=== PATIENT | female | born 1970 | race Caucasian/White ===

== ENCOUNTER 2019-06-04 11:08 | Emergency (ER) | payer BC, OTHER ==
[2019-06-04] MEDS ORDERED: Aspirin 81 mg CHEW TAB* 81 MG TAB.CHEW PO ONE (11:24)
[2019-06-04] MEDS ORDERED: Nitroglycerin TAB 0.4 MG* 0.4 MG TAB SL ONE (11:25)
--- NOTE | 2019-06-04 11:27 | ED ---
HPI Chest Pain - HPI Summary HPI Summary: 48-year-old female presents with sudden onset of back pain on left side today. She states that she initially thought was a muscle spasm. She states it radiates to the front of her chest and into left shoulder. States she became diaphoretic and a little nauseous. She states the pain hurts worse her takes a deep breath. She also to nauseous but that has resolved. She states that her pain was very sharp. Pain is now dull ache. She's never had this pain before. No injury. Has had diarrhea illness the past week and has been having occasional cough. Does have a strong family cardiac history. Has a history of diabete high blood pressure and high cholesterol. States that she sees a watchguard. Had a recent stress test in August that was normal. Has history of right bundle-branch block. She hasn't taken anything for her symptoms. - History of Current Complaint Chief Complaint: EDBackInjuryPain Time Seen by Provider: 06/04/19 11:12 Pain Intensity: 5 - Allergy/Home Medications Allergies/Adverse Reactions: Allergies Allergy/AdvReac Type Severity Reaction Status Date / Time latex Allergy Severe Shortness Verified 06/04/19 13:14 of Breath Home Medications: Home Medications Albuterol HFA INHALER* [Ventolin HFA Inhaler*] 2 puff INH Q6H PRN 06/04/19 [ History Confirmed 06/04/19] Cyclobenzaprine TAB* [Flexeril 10 MG TAB*] 10 mg PO BEDTIME PRN 06/04/19 [ History Confirmed 06/04/19] Ergocalciferol CAP* [Drisdol CAP*] 50,000 unit PO Q7D 06/04/19 [History Confirmed 06/04/19] Insulin Glargine,Hum.rec.anlog [Lantus Solostar 5x3 ML PENS] 33 units SUBCUT BID 06/04/19 [History Confirmed 06/04/19] Metformin ER (NF) 1,000 mg PO BID 06/04/19 [History Confirmed 06/04/19] Mometasone NASAL (NF) [Nasonex (NF)] 1 spray BOTH NARES BID 06/04/19 [History Confirmed 06/04/19] Ondansetron TAB* [Zofran 4 MG Tab*] 4 mg PO Q8HR PRN 06/04/19 [History Confirmed 06/04/19] Pravastatin (NF) [Pravachol (NF)] 80 mg PO DAILY 06/04/19 [History Confirmed ] Telmisartan/Hydrochlorothiazid [Telmisartan/Hydrochloroth 80-25 mg] 1 tab PO DAILY 06/04/19 [History Confirmed 06/04/19] Venlafaxine EXT RELEASE CAP* [Effexor Xr CAP*] 150 mg PO DAILY 06/04/19 [ History Confirmed 06/04/19] PMH/Surg Hx/FS Hx/Imm Hx Endocrine/Hematology History: Reports: Hx Diabetes Denies: Hx Anticoagulant Therapy Cardiovascular History: Reports: Hx Hypercholesterolemia, Hx Hypertension Respiratory History: Denies: Hx Asthma, Hx Chronic Obstructive Pulmonary Disease (COPD) Infectious Disease History: No Infectious Disease History: Denies: Traveled Outside the [place] in Last 30 Days - Family History Known Family History: Positive: Cardiac Disease - Social History Alcohol Use: None Substance Use Type: Reports: None Smoking Status (MU): Current Every Day Smoker Review of Systems Positive: Skin Diaphoresis. Negative: Fever Positive: Chest Pain Positive: Shortness Of Breath Positive: Nausea. Negative: Vomiting Positive: Myalgia - back pain All Other Systems Reviewed And Are Negative: Yes Physical Exam Triage Information Reviewed: Yes Vital Signs On Initial Exam: Initial Vitals Temp Pulse Resp BP Pulse Ox 98.2 F 96 18 138/91 96 06/04/19 11:10 06/04/19 11:10 06/04/19 11:10 06/04/19 11:10 06/04/19 11:10 Vital Signs Reviewed: Yes Appearance: Positive: Well-Appearing Skin: Positive: Warm, Dry Head/Face: Positive: Normal Head/Face Inspection Eyes: Positive: Normal, Conjunctiva Clear ENT: Positive: Pharynx normal Respiratory/Lung Sounds: Positive: Clear to Auscultation, Breath Sounds Present , Other - reproducible chest pain Cardiovascular: Positive: Normal, RRR Abdomen Description: Positive: Nontender, Soft Bowel Sounds: Positive: Present Musculoskeletal: Positive: Normal Neurological: Positive: Normal Psychiatric: Positive: Normal Diagnostics - Vital Signs Vital Signs Temp Pulse Resp BP Pulse Ox 06/04/19 11:10 98.2 F 96 18 138/91 96 - Laboratory Result Diagrams: 06/04/19 11:31 06/04/19 11:31 Lab Statement: Any lab studies that have been ordered have been reviewed, and results considered in the medical decision making process. - CT cta CT Interpretation Completed By: Radiologist Summary of CT Findings: IMPRESSION: 1. NO PULMONARY ARTERIAL FILLING DEFECT TO SUGGEST PULMONARY EMBOLISM. NO AORTIC INTIMAL. FLAP TO SUGGEST DISSECTION. 2. FATTY INFILTRATION OF THE LIVER. - EKG No standard instances Cardiac Rate: NL EKG Rhythm: Sinus Rhythm EKG Comparison: No Significant Change Summary of EKG Findings: sinus rhythm RBBB Re-Evaluation - Re-Evaluation First Eval Re-Evaluation Time: 12:10 Change: Unchanged Comment: pain unchanged with nitro, did start to get spasms Second Eval Re-Evaluation Time: 14:05 Comment: pain improved Third Eval Re-Evaluation Time: 15:05 Comment: no pain, patient does not want to be admitted Chest Pain Course/Dx - Course Course Of Treatment: 48-year-old female presents with sudden onset of back pain on left side today. She states that she initially thought was a muscle spasm. She states it radiates to the front of her chest and into left shoulder. States she became diaphoretic and a little nauseous. She states the pain hurts worse her takes a deep breath. She also to nauseous but that has resolved. She states that her pain was very sharp. Pain is now dull ache. She's never had this pain before. No injury. Has had diarrhea illness the past week and has been having occasional cough. Does have a strong family cardiac history. Has a history of diabete high blood pressure and high cholesterol. States that she sees a watchguard. Had a recent stress test in August that was normal. Has history of right bundle-branch block. She hasn't taken anything for her symptoms. On exam has reproducible pain over left side of chest and shoulder. Heart regular rhythm. Lungs clear auscultation. EKG shows sinus rhythm with right bundle-branch block. obtained recorders from primary and ekg is similar to previous. dr carvalho prior to ekg spoke with dr bartholomew who is not concerned with current ekg. troponin 1st zero. d-dimer neg. chest xray normal. wbc normal. crp elevated. with pain pattern from chest to back will get CTA as patient has significant smoking history. CTA no acute findings. troponin second zero. discussed that has significant risk factors for ACS but patient states that would prefer to follow up with cardiology. had stress test in aug 2018 at cardiology. pain is still reproducible and is spasm like so more likely chest wall pain. will place on course of muscle relaxers. told if anything changes to return. patient understand and agrees with plan. - Chest Pain Differential Diagnosis/HQI/PQRI: Angina, Chest Wall, Lower Respiratory Infection , Pulmonary Embolism - Diagnoses Provider Diagnoses: Atypical chest pain Discharge - Sign-Out/Discharge Documenting (check all that apply): Patient Departure Patient Received Moderate/Deep Sedation with Procedure: No - Discharge Plan Condition: Good Disposition: HOME Prescriptions: Benzonatate CAP* [Tessalon 100 MG CAP*] 100 mg PO TID #21 cap Methocarbamol TAB* [Robaxin 500 MG TAB*] 500 mg PO TID PRN #21 tab PRN Reason: Pain - Moderate Patient Education Materials: Chest Wall Pain (ED) Forms: *Work Release Referrals: Dwight PAREKH,Sandy Izaguirre [Medical Doctor] - Additional Instructions: Take muscle relaxers three times a day Use ibuprofen or Tylenol for pain every 6 hours ice/heat area, move as much as possible Follow up with cardiology Return to ED if develop any new or worsening symptoms - Billing Disposition and Condition Condition: GOOD Disposition: Home - Attestation Statements Provider Attestation: I was available for consultation for this patient. I did not evaluate the patient or participate in any medical decision making or disposition decisions unless I am specifically named in the chart as having consulted on the patient. If I have consulted on the patient, please see my own ED note on the patient encounter. Junior Carvalho MD
[2019-06-04 11:39] LABS: ABS Basophils 0.1 10^3/ul (0-0.2); ABS Eosinophils 0.1 10^3/ul (0-0.6); ABS Monocytes 0.4 10^3/ul (0-0.8); ABS Neutrophils 4.9 10^3/ul (1.5-7.7); Eosinophil % 1.5 %; Hematocrit 42 % (35-47); Hemoglobin 14.4 g/dL (12.0-16.0); Lymphocyte % 34.7 %; Mean Corpuscular HGB Conc 34 g/dL (31-36); Mean Corpuscular Hemoglobin 30 pg (27-31); Mean Corpuscular Volume 87 fL (80-97); Mean Platelet Volume 9.1 fL (7.4-10.4); Nucleated Red Blood Cells % 0.1; Platelet Count 255 10^3/uL (150-450); Red Blood Count 4.87 10^6 /uL (3.70-4.87); Red Cell Distribution Width 14 % (10-15); White Blood Count 8.6 10^3/uL (3.5-10.8)
[2019-06-04 11:59] LABS: Albumin 4.4 g/dL (3.2-5.2); Albumin/Globulin Ratio 1.4 (1-3); BUN/Creatinine Ratio 15.9 (8-20); C Reactive Protein 33.68 mg/L (<8.01); Calcium 9.9 mg/dL (8.6-10.3); EGFR African American 109.4 (>60); EGFR Non-African American 90.4 (>60); Globulin 3.1 g/dL (2-4); Potassium 3.9 mmol/L (3.5-5.0); Total Bilirubin 0.4 mg/dL (0.2-1.0); Total Protein 7.5 g/dL (6.4-8.9)
[2019-06-04 12:04] LABS: HCG Pregnancy 1.26 mIU/mL
[2019-06-04] MEDS ORDERED: Morphine 4 MG/ML VIAL (1 ml) 4 MG/ML VIAL IV ONE (12:18)
[2019-06-04] MEDS ORDERED: NS 0.9% 1000 ML** 1,000 ML IV ONE ×2 (12:18→12:37)
[2019-06-04] MEDS ORDERED: Iodixanol* (CONTRAST) 320 MG/ML 100 ML SDV IV ONE (13:15)
[2019-06-04 15:16] VITALS: BP 145/87
== END 2019-06-04 15:15 | disposition home or self-care (01) ==
LOC: ED 11:08
DX: R07.89 Other chest pain (principal); K76.0 Fatty (change of) liver, not elsewhere classified; E11.9 Type 2 diabetes mellitus without complications; E78.00 Pure hypercholesterolemia, unspecified; I10 Essential (primary) hypertension; F17.210 Nicotine dependence, cigarettes, uncomplicated; Z79.4 Long term (current) use of insulin; Z79.899 Other long term (current) drug therapy; Z91.040 Latex allergy status
CPT/HCPCS: 36415; 71045; 71275; 80053; 83605; 83690; 84484; 84702; 85025; 85379; 86140; 93005; 96361; 96374; 99283; A9270-GY; J2270; Q9967